=== PATIENT | male | born 1965 | race Caucasian/White ===

== ENCOUNTER 2019-12-31 01:19 | Inpatient (IN) | payer SELFPAY ==
[~2019-12-31] VITALS: Ht 172.7 cm; Wt 75.0 kg
[2019-12-31] MEDS ORDERED: KETOROLAC 15 MG/ML VIAL. IVP ONE (01:45)
[2019-12-31] MEDS ORDERED: ORPHENADRINE CITRATE 60 MG/2 ML VIAL. IV ONE (01:45)
[2019-12-31] MEDS ORDERED: ORPHENADRINE CITRATE 60 MG/2 ML VIAL. ONE (02:02)
[2019-12-31] MEDS ORDERED: KETOROLAC 30 MG/ML VIAL. ONE (02:02)
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
[2019-12-31] MEDS ORDERED: KETOROLAC 60 MG/2 ML VIAL. IM ONE (02:15)
[2019-12-31] MEDS ORDERED: ORPHENADRINE CITRATE 60 MG/2 ML VIAL. IM ONE (02:15)
[2019-12-31] MEDS ORDERED: KETOROLAC 30 MG/ML VIAL. IM ONE (02:30)
--- NOTE | 2019-12-31 02:48 | RAD ---
CHEST AP ONLY, LUMBAR SPINE 2-3V Clinical History: Reason: cough, congestion / Spl. Instructions: / History: One view chest: Technique: AP view of the chest was obtained at 12/31/2019 1:44 AM. Comparison: None. Findings: The cardiomediastinal silhouette is normal. The pulmonary vasculature is normal. There is reticular opacities of lungs including curly B lines. Impression: Mild interstitial edema could be secondary CHF. Clinical correlation is suggested. End impression Three view lumbosacral spine History: Pain AP, coned-down lateral and lateral views of the lumbosacral spine were obtained. There is mild dextroconvex curvature in the AP view. The vertebral bodies aligned in the lateral view. There is no loss of vertebral body stature. There is mild loss of intervertebral disc height and marginal spurring at endplates. Impression: Mild degenerative changes. No acute findings. End Impression Electronically signed by: Jeff Jones III, MD (12/31/2019 2:45 AM) [facility]
[2019-12-31 04:26] LABS: CALCIUM 8.7 mg/dL (8.5-10.1); GFR 78.2; POTASSIUM 4.4 mmol/L (3.5-5.1)
[2019-12-31 04:28] LABS: BASO % 0 % (0-3); EOS # 0.3 x10^3/uL (0.0-0.7); EOS % 3 % (0-3); HEMATOCRIT 39.3 % (39.0-53.0); HEMOGLOBIN 12.5 g/dL (13.0-17.5); LYMPH % 9 % (24-48); MEAN CORPUSCULAR HEMOGLOBIN 26 pg (25-35); MEAN CORPUSCULAR HGB CONC 32 g/dL (31-37); MEAN CORPUSCULAR VOLUME 81 fL (79-100); MONO # 0.6 x10^3/uL (0.0-1.1); MONO % 5 % (0-9); NEUT # 9.2 x10^3uL (1.8-7.7); NEUT % 83 % (31-73); PLATELET COUNT 265 x10^3/uL (140-400); RED BLOOD COUNT 4.87 x10^6/uL (4.30-5.70); RED CELL DISTRIBUTION WIDTH 15.6 % (11.5-14.5); WHITE BLOOD COUNT 11.1 x10^3/uL (4.0-11.0)
--- NOTE | 2019-12-31 04:32 | EKG ---
[facility] ED [facility] [place] [id number] Test Date: 2019-12-31 Test Time: 03:26:24 Pat Name: ALAN PATEL Department: Room: Gender: M Pcb Design Engineer: : 1965 Requested By: JACK GREENFIELD Order Number: [id number] Reading MD: Measurements Intervals [place] Rate: 86 P: 42 [place]: 154 QRS: 19 QRSD: 100 T: 41 QT: 370 QTc: 446 Interpretive Statements SINUS RHYTHM LEFT ATRIAL ABNORMALITY ABNORMAL ECG RI6.02 No previous ECG available for comparison
[2019-12-31 04:37] LABS: ALBUMIN 2.9 g/dL (3.4-5.0); ALBUMIN/GLOBULIN RATIO 0.8 (1.0-1.7); TOTAL BILIRUBIN 0.1 mg/dL (0.2-1.0); TOTAL PROTEIN 6.5 g/dL (6.4-8.2)
[2019-12-31] MEDS ORDERED: FUROSEMIDE 40 MG/4 ML VIAL IVP ONE (05:00)
[2019-12-31] MEDS ORDERED: ONDANSETRON PF 4 MG/2 ML VIAL. IVP PRN (05:15)
[2019-12-31 10:30] VITALS: BP 124/85
[2019-12-31] MEDS ORDERED: LISINOPRIL 10 MG TABLET PO SCH (12:15)
[2019-12-31] MEDS ORDERED: FUROSEMIDE 40 MG/4 ML VIAL IVP SCH (12:15)
--- NOTE | 2019-12-31 13:29 | HP ---
ADMIT DATE: 12/31/2019 ATTENDING PHYSICIAN: Dr. Newsome. CHIEF COMPLAINT: Shortness of breath and back pain. HISTORY OF PRESENT ILLNESS: The patient is a 54-year-old gentleman admitted through the ED with back pain and shortness of breath. He had a chest x-ray done, which showed cardiomegaly, vascular congestion, Gwendolyn B lines. He is a drinker and there is a history of polysubstance abuse. He is admitted for treatment and evaluation. He has had chronic back pain, which is longstanding. His past medical history is significant for significant alcohol use, although he downplays it. He is a heavy smoker. He had a stroke in 2013 resulting in right sided weakness. He works part-time. He does not have a car. He states that he drinks alcohol intermittently. His family history is very interesting. His mom of complications of kidney failure due to polycystic kidney disease. Since polycystic kidney disease is autosomal dominant, it does not skip generation. He has an older brother and older sister that also has polycystic kidney disease. He states that he himself does not have the condition. We have not fully assessed this, but his creatinine has been adequate. He has polysubstance abuse and essential hypertension. He is noncompliant. He does not have a local physician. CURRENT MEDICATIONS: None. ALLERGIES: He has no known drug allergies. SOCIAL HISTORY: As noted, polysubstance abuse including alcohol and tobacco and recreational drugs. REVIEW OF SYSTEMS: Significant for some minimal orthopnea. He has had chronic back pain. He denies any recent COVID exposure, fevers or chills. He has had previous head trauma. All other systems reviewed and turned to be negative. PHYSICAL EXAMINATION: GENERAL: When I saw him, this is a pleasant, middle-aged gentleman, who is fairly alert. VITAL SIGNS: Initial blood pressure was 141/96, pulse 96 and regular. He was afebrile, oxygen saturation 97% on room air. HEENT: Head is without trauma. Pupils are reactive. Sclerae nonicteric. Oropharynx is clear. NECK: Supple, no bruits identified. LUNGS: Otherwise, clear. He has minimal rhonchi. CARDIOVASCULAR: Showed distant heart tones. No gallops or murmurs. Peripheral pulses are palpable and full. ABDOMEN: Soft, scaphoid, nontender, no organomegaly. Bowel sounds are hypoactive. EXTREMITIES: Showed no cyanosis or edema. NEUROLOGIC: Focally intact. Speech is fluent. SKIN: Warm and dry. PERTINENT LABORATORY AND X-RAYS: Chest x-ray as noted, cardiomegaly with vascular congestion and Gwendolyn B lines, hemoglobin 12.5 g/dL with a white count of 11,100. Electrolytes within range. Creatinine is 1.0 mg percent. Three sets of cardiac enzymes were 0.04, 0.04 and 0.03. The upper limit of ischemia is 0.05. BNP is 3961. ASSESSMENT: 1. A 54-year-old gentleman with congestive heart failure. 2. Hypertensive cardiomyopathy. 3. Alcoholic cardiomyopathy. 4. Chronic obstructive pulmonary disease. 5. Old cerebrovascular accident. 6. Noncompliance of medications. 7. Posttraumatic abuse. PLAN: 1. Admit to the inpatient unit. 2. Empiric preload reduction with the Lasix. 3. Empiric afterload reduction with lisinopril. 4. Strong encouragement to quit alcohol and tobacco use. 5. I have held off ordering echocardiogram since he does not have coverage at this time. This can be done as an outpatient. 6. Diet as tolerated. 7. Pain control. YASMIN NEWSOME MD DR: CARLOS/vitaliy JOB#: [id number] / [id number]
[2019-12-31 14:29] VITALS: BP 134/82
--- NOTE | 2019-12-31 15:55 | NUR ---
Patient simultaneously admitted and discharged in the same day. Arrived with back pain and new CHF. Oriented to room and surroundings. Discharged to home with all belongings and medication scripts for lisinopril, cyclobenzaprine, and furosemide.
--- NOTE | 2019-12-31 16:06 | DS ---
DATE OF DISCHARGE: 12/31/2019 ATTENDING PHYSICIAN: Dr. Newsome. FINAL DISCHARGE DIAGNOSES: 1. Congestive heart failure, acute. 2. Hypertensive cardiomyopathy. 3. Alcoholic cardiomyopathy. 4. Chronic obstructive pulmonary disease. 5. Old cerebrovascular accident with residual deficits. 6. Polysubstance abuse. 7. Noncompliance of medications. HISTORY AND PHYSICAL: This is a 54-year-old gentleman with previous stroke. He continues to smoke and do recreational drugs. He was admitted with shortness of breath and chronic back pain. He had a chest x-ray evidence of vascular congestion, cardiomegaly and Gwendolyn B lines. PHYSICAL EXAMINATION: Please see the dictated note. PERTINENT LABORATORY AND X-RAY STUDIES: Admission hemoglobin was 12.5 g/dL with a white count of 11,100. The 3 sets of cardiac enzymes were negative for coronary ischemia. BNP was 3960, potassium is 4.4 mEq, nonfasting blood sugar 117. COURSE IN THE HOSPITAL: The patient was started on empiric preload and afterload reduction with lisinopril 20 mg daily and Lasix 80 mg p.o. daily. He had chronic back pain; I wrote him a script for Flexeril 10 mg b.i.d. as needed. He was agreeable to go home. He was feeling better and vital signs were stable. He was breathing better with the treatment. Blood pressure at the time of discharge was 134/82, pulse 90 and regular. He was afebrile. Strong encouragement to avoid further tobacco use and he should follow up with his PCP. He was given scripts for Lasix 80 mg p.o. daily, lisinopril 20 mg daily, and Flexeril 10 mg p.o. b.i.d. Whether or not he will quit smoking or drinking, remains to be seen. The patient was then discharged from our hospital in stable condition with explicit instructions and followup care. YASMIN NEWSOME MD DR: CARLOS/vitaliy JOB#: [id number] / [id number]
== END 2019-12-31 15:50 | disposition home or self-care (01) | DRG 292 ==
LOC: ER 01:19 → ICU 05:05
PROVIDERS: ADMIT Hospitalist; ATTEND Hospitalist
DX: I11.0 Hypertensive heart disease with heart failure (principal); I69.351 Hemiplegia and hemiparesis following cerebral infarction affecting right dominant side; F17.200 Nicotine dependence, unspecified, uncomplicated; G89.29 Other chronic pain; I42.6 Alcoholic cardiomyopathy; I43 Cardiomyopathy in diseases classified elsewhere; I50.9 Heart failure, unspecified; J44.9 Chronic obstructive pulmonary disease, unspecified; M54.40 Lumbago with sciatica, unspecified side; Z79.899 Other long term (current) drug therapy; Z82.71 Family history of polycystic kidney; Z91.14 Patient's other noncompliance with medication regimen; Z91.19 Patient's noncompliance with other medical treatment and regimen
CPT/HCPCS: 36415; 71045; 72100; 80053; 83880; 84484; 85025; 93005; 96372; 96374; J1885; J1940; J2360; 99285-25

== ENCOUNTER 2020-01-06 05:29 | Emergency (ER) | payer SELFPAY ==
[~2020-01-06] VITALS: Ht 172.7 cm; Wt 71.3 kg
[2020-01-06] MEDS ORDERED: IPRATRPIUM/ALBUTEROL 0.5/2.5MG 3 ML NEBU. NEB ONE (06:00)
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
[2020-01-06 06:20] VITALS: BP 138/76
[2020-01-06] MEDS ORDERED: ALBU2.5V8 IH (06:20)
--- NOTE | 2020-01-06 06:21 | EKG ---
[facility] [address] [place] [address] Test Date: 2020-01-06 Test Time: 06:01:26 Pat Name: ALAN PATEL Department: Room: Gender: M [employer]: : 1965 Requested By: MINA GUAJARDO Order Number: [id number] Reading MD: Ranjit Rodrigues MD Measurements Intervals [place] Rate: 88 P: 55 KS: 152 QRS: 16 QRSD: 110 T: 61 QT: 378 QTc: 461 Interpretive Statements SINUS RHYTHM LEFT ATRIAL ABNORMALITY AMPLITUDE CRITERIA FOR LVH T ABNORMALITY IN HIGH LATERAL LEADS ABNORMAL ECG Electronically Signed On 01-07-2020 10:57:23 FUNCTIONAL TESTER TYPEWRITERS by Ranjit Rodrigues MD
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
== END 2020-01-06 06:25 | disposition home or self-care (01) ==
LOC: ER 05:29
DX: T59.811A Toxic effect of smoke, accidental (unintentional), initial encounter (principal); J68.8 Other respiratory conditions due to chemicals, gases, fumes and vapors; I10 Essential (primary) hypertension; F17.210 Nicotine dependence, cigarettes, uncomplicated; Z86.73 Personal history of transient ischemic attack (TIA), and cerebral infarction without residual deficits; Y92.89 Other specified places as the place of occurrence of the external cause
CPT/HCPCS: 71045; 93005; 99283; 99285-25

== ENCOUNTER 2021-07-01 11:38 | Emergency (ER) | payer SELFPAY ==
[~2021-07-01] VITALS: Ht 177.8 cm; Wt 68.2 kg
[~2021-07-01 11:38] MED LIST: ALBU2.5V8 IH
[2021-07-01] MEDS ORDERED: MORPHINE SULFATE 4 MG/ML DISP.SYRIN. IV/SQ PRN (12:15)
[2021-07-01] MEDS ORDERED: ONDANSETRON PF 4 MG/2 ML VIAL. IVP ONE (12:15)
[2021-07-01] MEDS ORDERED: IV NORMAL SALINE 1,000ML 1,000 ML IV SCH (12:15)
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
[2021-07-01] MEDS ORDERED: IOHEXOL 300 MG/ML 75 ML VIAL. IV ONE (12:30)
--- NOTE | 2021-07-01 12:46 | RAD ---
Exam: XR HAND_LEFT 3 VIEWS History: Fall. Left hand and small finger pain. Comparison: None. Findings: Osseous mineralization is normal. There is an oblique periarticular fracture of the distal metaphysis of the fifth metacarpal with approximately 4 mm of shortening and radial-volar displacement. No sign ificant degenerative changes. Soft tissue swelling about the distal fifth metacarpal. Impression: 1. Mildly displaced oblique fracture of the distal left fifth metacarpal. Electronically signed by: Kevin Tong MD (07/01/2021 12:44 PM) [id number]
[2021-07-01 12:56] LABS: BASO % 0 % (0-3); EOS # 0.1 x10^3/uL (0.0-0.7); EOS % 2 % (0-3); HEMATOCRIT 36.6 % (39.0-53.0); LYMPH # 0.9 x10^3/uL (1.0-4.8); LYMPH % 11 % (24-48); MEAN CORPUSCULAR HEMOGLOBIN 29 pg (25-35); MEAN CORPUSCULAR HGB CONC 33 g/dL (31-37); MEAN CORPUSCULAR VOLUME 87 fL (79-100); MONO # 0.4 x10^3/uL (0.0-1.1); MONO % 5 % (0-9); NEUT # 6.5 x10^3uL (1.8-7.7); NEUT % 81 % (31-73); PLATELET COUNT 311 x10^3/uL (140-400); RED BLOOD COUNT 4.22 x10^6/uL (4.30-5.70); RED CELL DISTRIBUTION WIDTH 14.1 % (11.5-14.5)
[2021-07-01 13:03] LABS: POTASSIUM ISTAT 4.1 mmol/L (3.5-5.0)
[2021-07-01 13:04] LABS: HEMOGLOBIN ISTAT 17.3 gm/dL
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
[2021-07-01] MEDS ORDERED: HYDR-2759 PO (13:46)
[2021-07-01 14:00] VITALS: BP 153/94
[2021-07-01 14:14] LABS: BACTERIA,URINE 0 /HPF (0-FEW); CLARITY,URINE CLEAR; COLOR,URINE YELLOW; GLUCOSE,URINE NEG (NEG); NITRITE,URINE NEG (NEG); RBC,URINE OCC /HPF (0-2); SQUAMOUS EPITHELIAL CELL,UR OCC /LPF; UROBILINOGEN,URINE 0.2 mg/dL (0.2 mg/dL); WBC,URINE OCC /HPF (0-4)
== END 2021-07-01 14:14 | disposition home or self-care (01) ==
LOC: ER 11:38
DX: S62.337A Displaced fracture of neck of fifth metacarpal bone, left hand, initial encounter for closed fracture (principal); S20.212A Contusion of left front wall of thorax, initial encounter; S01.01XA Laceration without foreign body of scalp, initial encounter; I11.0 Hypertensive heart disease with heart failure; I50.9 Heart failure, unspecified; J44.9 Chronic obstructive pulmonary disease, unspecified; F17.210 Nicotine dependence, cigarettes, uncomplicated; W19.XXXA Unspecified fall, initial encounter; Y93.89 Activity, other specified; Y92.89 Other specified places as the place of occurrence of the external cause; Y99.8 Other external cause status
CPT/HCPCS: 36415; 70450; 71260; 72125; 72128; 72131; 73130; 74177; 80047; 81001; 85025; 85610; 85730; 96361; 96374; 96375; 99285; J2270; J2405; J7030; Q9967